=== PATIENT | female | born 1995 | race Caucasian/White ===

== ENCOUNTER 2017-04-15 10:06 | Emergency (ER) | payer OTHER, MEDICAID ==
[2017-04-15] MEDS ORDERED: NS 1,000 ML IV ONE (10:35)
[2017-04-15] MEDS ORDERED: IOPAMIDOL (ISOVUE-300) 100 ML BTL ONE (13:02)
[2017-04-15] MEDS ORDERED: IBUPROFEN 600 MG TAB PO ONE (13:14)
[2017-04-15] MEDS ORDERED: HYDROCODONE/APAP 5/325 TAB PO ONE (13:14)
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
[2017-04-15 14:28] VITALS: BP 100/60; PULSE 69; RESP 18; TEMP 98.6; O2SAT 98
== END 2017-04-15 14:26 | disposition home or self-care (01) ==
DX: S20.222A Contusion of left back wall of thorax, initial encounter (principal); J45.909 Unspecified asthma, uncomplicated; E86.9 Volume depletion, unspecified; Z91.040 Latex allergy status; V89.2XXA Person injured in unspecified motor-vehicle accident, traffic, initial encounter; Y92.410 Unspecified street and highway as the place of occurrence of the external cause
CPT/HCPCS: 82947-QW; Q9967